=== PATIENT | female | born 1990 | race Caucasian/White ===

== ENCOUNTER 2025-08-21 16:07 | Emergency (ER) | payer SELFPAY ==
[2025-08-21] MEDS ORDERED: Albuterol 2.5 MG (0.5 mL) NEB ONE (16:11)
[2025-08-21] MEDS ORDERED: predniSONE 20 MG TAB ONE (16:28)
[2025-08-21] MEDS ORDERED: Magnesium 2 GM/50 ML BAG (IN WATER) ONE (16:28)
== END 2025-08-21 17:30 | disposition home or self-care (01) ==
LOC: BURERS 16:07
DX: J45.901 Unspecified asthma with (acute) exacerbation (principal); J06.9 Acute upper respiratory infection, unspecified
CPT/HCPCS: 96374; J3475; J7512; J7611